=== PATIENT | female | born 1995 | race Caucasian/White ===

== ENCOUNTER 2018-08-25 19:15 | Emergency (ER) | payer BC ==
--- NOTE | 2018-08-25 19:37 | EDM.PDOC ---
ED HPI GENERAL MEDICAL PROBLEM - General Chief Complaint: Chest Pain Stated Complaint: PT HAS CHEST AND BACK PAINS Time Seen by Provider: 08/25/18 19:26 Source of Information: Reports: Patient History Limitations: Reports: No Limitations - History of Present Illness INITIAL COMMENTS - FREE TEXT/NARRATIVE: HISTORY AND PHYSICAL: History of present illness: Patient is a 23-year-old female who presents to the emergency room today with complaints of right-sided chest pain over the past 2-3 days. She states that over the past 24 hours the pain has been more constant and she feels a burning sensation to her epigastrium/chest. She states nothing has made this pain better or worse. She denies any fever, chills, illness of breath or cough. Denies any abdominal pain, nausea, vomiting, diarrhea, constipation or dysuria. Review of systems: As per history of present illness and below otherwise all systems reviewed and negative. Past medical history: As per history of present illness and as reviewed below otherwise noncontributory. Surgical history: As per history of present illness and as reviewed below otherwise noncontributory. Social history: No reported history of drug or alcohol abuse. Family history: As per history of present illness and as reviewed below otherwise noncontributory. Physical exam: General: Developed and well-nourished 23-year-old female. Alert and oriented. Nontoxic appearing and in no acute distress. HEENT: Atraumatic, normocephalic, pupils equal and reactive bilaterally, negative for conjunctival pallor or scleral icterus, mucous membranes moist, throat clear, neck supple, nontender, trachea midline. No drooling or trismus noted. No meningeal signs Lungs: Clear to auscultation, breath sounds equal bilaterally, chest nontender. Heart: S1S2, regular rate and rhythm without overt murmur Abdomen: Soft, nondistended, nontender. Negative for masses or hepatosplenomegaly. Negative for costovertebral tenderness. Pelvis: Stable nontender. Genitourinary: Deferred. Rectal: Deferred. Skin: Intact, warm, dry. No lesions or rashes noted. Extremities: Atraumatic, negative for cords or calf pain. Neurovascular unremarkable. Neuro: Awake, alert, oriented. Cranial nerves II through XII unremarkable. Cerebellum unremarkable. Motor and sensory unremarkable throughout. Exam nonfocal. Notes: EKG shows no evidence of acute findings. Patient has an H.pylori infection, will treat with triple therapy. Vital signs are stable. These findings with the patient and encouraged her to follow up with her primary care provider. She voices understanding and is agreeable to plan of care. Denies any further questions or concerns Diagnostics: CBC, CMP, amylase, lipase, H pylori, EKG, chest x-ray Therapeutics: GI cocktail Prescription: Omeprozole/Clarithrymycin/Amoxicillin x 14 days Impression: Nonspecific chest pain H.Pylori infection Plan: 1. Take your medications as directed. [place] diet, advance as tolerated. Tylenol as needed for pain management. 2. Please follow-up with your primary care provider in the next 1-2 days. Return to the ED as needed and as discussed. Definitive disposition and diagnosis as appropriate pending reevaluation and review of above. chest/back Pain Score (Numeric/FACES): 7 - Related Data Allergies Allergy/AdvReac Type Severity Reaction Status Date / Time No Known Allergies Allergy Verified 08/25/18 19:28 Home Meds: Home Meds Escitalopram Oxalate [Lexapro] 20 mg PO DAILY 08/25/18 [History] OXcarbazepine [Trileptal] 150 mg PO DAILY 08/25/18 [History] Past Medical History Psychiatric History: Reports: Bipolar - Past Surgical History GI Surgical History: Reports: Appendectomy Social & Family History - Tobacco Use Smoking Status *Q: Current Every Day Smoker Years of Tobacco use: 5 Packs/Tins Daily: 1 - Caffeine Use Caffeine Use: Reports: Coffee - Recreational Drug Use Recreational Drug Use: No ED ROS GENERAL - Review of Systems Review Of Systems: ROS reveals no pertinent complaints other than HPI. ED EXAM, GENERAL - Physical Exam Exam: See Below (See dictation) Course - Vital Signs Last Recorded V/S: Last Vital Signs Temp 97.3 F 08/25/18 19:25 Pulse 89 08/25/18 19:25 Resp 14 08/25/18 19:25 BP 144/83 H 08/25/18 19:25 Pulse Ox 96 08/25/18 19:25 - Orders/Labs/Meds Orders: Active Orders 24 hr Category Date Time Status EKG Documentation Completion [RC] STAT Care 08/25/18 19:30 Active Chest 2V [CR] Stat Exams 10/01/18 19:31 Taken Labs: Laboratory Tests 08/25/18 08/25/18 08/25/18 Range/Units 20:08 20:08 20:08 WBC 9.65 (4.0-11.0) K/uL RBC 4.82 (4.30-5.90) M/uL Hgb 15.1 (12.0-16.0) g/dL Hct 41.8 (36.0-46.0) % MCV 86.7 (80.0-98.0) fL MCH 31.3 (27.0-32.0) pg MCHC 36.1 (31.0-37.0) g/dL RDW Std Deviation 38.7 (28.0-62.0) fl RDW Coeff of Zarina 12 (11.0-15.0) % Plt Count 301 (150-400) K/uL MPV 9.80 (7.40-12.00) fL Neut % (Auto) 55.8 (48.0-80.0) % Lymph % (Auto) 34.3 (16.0-40.0) % [place] % (Auto) 7.4 (0.0-15.0) % Eos % (Auto) 2.3 (0.0-7.0) % Baso % (Auto) 0.2 (0.0-1.5) % Neut # (Auto) 5.4 (1.4-5.7) K/uL Lymph # (Auto) 3.3 H (0.6-2.4) K/uL [place] # (Auto) 0.7 (0.0-0.8) K/uL Eos # (Auto) 0.2 (0.0-0.7) K/uL Baso # (Auto) 0.0 (0.0-0.1) K/uL Nucleated RBC % 0.0 /100WBC Nucleated RBCs # 0 K/uL Sodium 137 (136-145) mmol/L Potassium 3.6 (3.5-5.1) mmol/L Chloride 105 (98-107) mmol/L Carbon Dioxide 23.1 (21.0-32.0) mmol/L BUN 10 (7.0-18.0) mg/dL Creatinine 0.7 (0.6-1.0) mg/dL Est Cr Clr Drug Dosing 119.01 mL/min Estimated GFR (MDRD) > 60.0 ml/min Glucose 112 H (74-106) mg/dL Calcium 9.3 (8.5-10.1) mg/dL Total Bilirubin 0.2 (0.2-1.0) mg/dL AST 12 L (15-37) IU/L ALT 19 (14-63) IU/L Alkaline Phosphatase 55 (46-116) U/L Total Protein 7.6 (6.4-8.2) g/dL Albumin 4.1 (3.4-5.0) g/dL Globulin 3.5 (2.0-3.5) g/dL Albumin/Globulin Ratio 1.2 L (1.3-2.8) Amylase 74 (25-115) U/L Lipase 216 (73-393) U/L H. pylori IgG Antibody POSITIVE H (NEG) Meds: Medications Discontinued Medications Generic Name Dose Route Start Last Admin Trade Name Freq PRN Reason Stop Dose Admin Al Hydroxide/Mg Hydroxide 15 0 ml 08/25/18 19:48 08/25/18 20:15 ml/ Metoclopramide HCl 5 mg/ PO 08/25/18 19:49 25 each Lidocaine HCl 5 ml ONETIME ONE Administration Departure - Departure Time of Disposition: 21:18 Disposition: Home, Self-Care 01 Clinical Impression: Helicobacter pylori (H. pylori) infection, Nonspecific chest pain Instructions: Helicobacter Pylori Infection Referrals: PCP,None [Primary Care Provider] - Forms: ED Department Discharge Additional Instructions: The following information is given to patients seen in the emergency department who are being discharged to home. This information is to outline your options for follow-up care. We provide all patients seen in our emergency department with a follow-up referral. The need for follow-up, as well as the timing and circumstances, are variable depending upon the specifics of your emergency department visit. If you don't have a primary care physician on staff, we will provide you with a referral. We always advise you to contact your personal physician following an emergency department visit to inform them of the circumstance of the visit and for follow-up with them and/or the need for any referrals to a consulting specialist. The emergency department will also refer you to a specialist when appropriate. This referral assures that you have the opportunity for follow-up care with a specialist. All of these measure are taken in an effort to provide you with optimal care, which includes your follow-up. Under all circumstances we always encourage you to contact your private physician who remains a resource for coordinating your care. When calling for follow-up care, please make the office aware that this follow-up is from your recent emergency room visit. If for any reason you are refused follow-up, please contact the [facility] Emergency Department at and asked to speak to the emergency department charge nurse. [facility] [address] [place] [id number] 1. Take your medications as directed. [place] diet, advance as tolerated. Tylenol as needed for pain management. 2. Please follow-up with your primary care provider in the next 1-2 days. Return to the ED as needed and as discussed. - My Orders Last 24 Hours: My Active Orders 08/25/18 19:30 EKG Documentation Completion [RC] STAT 08/25/18 19:31 Chest 2V [CR] Stat - Assessment/Plan Last 24 Hours: My Active Orders 08/25/18 19:30 EKG Documentation Completion [RC] STAT 08/25/18 19:31 Chest 2V [CR] Stat
[2018-08-25] MEDS ORDERED: Alum Hydrox/Mag Hydrox/Simeth 15 ML, Metoclopramide 5 MG, Lidocaine 2% 5 ML PO ONE ×3 (19:48)
[2018-08-25 20:37] LABS: CHLORIDE,CL 105 mmol/L (98-107); SODIUM,NA 137 mmol/L (136-145)
--- NOTE | 2018-08-26 09:30 | CR ---
EXAM DATE: 08/25/18 PATIENT'S AGE: 23 Patient: HADLEY ESQUIVEL Facility: [facility], [place] Site . Site : 1995 Study: XRay Chest [id number]/1/2018 8:06:48 PM Ordering Physician: Doctor Grace Final Report: INDICATION: Chest pain TECHNIQUE: Chest radiograph 2 views COMPARISON: None FINDINGS: Mediastinum: The mediastinum is normal in appearance. The heart silhouette is normal in size and morphology. Lung: Both lungs are unremarkable in appearance. No sign of pleural effusion seen. No pneumothorax is identified. Musculoskeletal: Unremarkable for age. IMPRESSION: 1. No acute cardiopulmonary disease is seen. Dictated by: Joshua Urban MD @ 08/25/2018 20:07:58 (Electronic Signature) Report Signed by Proxy. [facility]ITAL[facility]aitanya
== END 2018-08-25 21:32 | disposition home or self-care (01) ==
LOC: MW.ED 19:15
DX: R07.9 Chest pain, unspecified (principal); B96.81 Helicobacter pylori [H. pylori] as the cause of diseases classified elsewhere; F17.210 Nicotine dependence, cigarettes, uncomplicated; Z79.899 Other long term (current) drug therapy
CPT/HCPCS: 36415; 71046; 80053; 82150; 83690; 85025; 86677; 93005; 99285; A9270; 99283

== ENCOUNTER 2018-08-28 09:04 | Emergency (ER) | payer BC ==
[2018-08-28] MEDS ORDERED: diphenhydrAMINE 25 MG Cap PO ONE (09:38)
--- NOTE | 2018-08-28 09:42 | EDM.PDOC ---
ED HPI GENERAL MEDICAL PROBLEM - General Chief Complaint: Allergic Reaction Stated Complaint: poss allergic reaction Time Seen by Provider: 08/28/18 09:38 Source of Information: Reports: Patient History Limitations: Reports: No Limitations - History of Present Illness INITIAL COMMENTS - FREE TEXT/NARRATIVE: History of present illness: []Patient was seen ED and diagnosed with H. pylori infection on August 25 and started a Prevpac. Patient broke out in a rash all over last night that is itchy. Patient states that her dad is allergic to amoxicillin but she has not been in the past. Denies any shortness of breath, difficulty swallowing, change in her voice or cough. Review of systems: As per history of present illness and below otherwise all systems reviewed and negative. Past medical history: As per history of present illness and as reviewed below otherwise noncontributory. Surgical history: As per history of present illness and as reviewed below otherwise noncontributory. Social history: No reported history of drug or alcohol abuse. Family history: As per history of present illness and as reviewed below otherwise noncontributory. Physical exam: General: Well developed, well nourished in NAD HEENT: Atraumatic, normocephalic, pupils reactive, negative for conjunctival pallor or scleral icterus, mucous membranes moist, throat clear, neck supple, nontender, trachea midline. Lungs: Clear to auscultation, breath sounds equal bilaterally, chest nontender. Heart: S1S2, regular, negative for clicks, rubs, or JVD. Abdomen: Soft, nondistended, nontender. Negative for masses or hepatosplenomegaly. Negative for costovertebral tenderness. Pelvis: Stable nontender. Genitourinary: Deferred. Rectal: Deferred. Extremities: Atraumatic, negative for cords or calf pain. Neurovascular unremarkable. Neuro: Awake, alert, oriented. Cranial nerves II through XII unremarkable. Cerebellum unremarkable. Motor and sensory unremarkable throughout. Exam nonfocal. Skin:warm and dry, diffuse pinpoint erythematous rash no pustules, drainage or secondary infection is noted Diagnostics: None Therapeutics: Benadryl ED Course: Unremarkable Impression: Allergic reaction to an antibiotic Prescriptions: None Plan: Take Benadryl every 4 hours as needed for itching, stop clarithromycin, amoxicillin and omeprazole Definitive disposition and diagnosis as appropriate pending reevaluation and review of above. Generalized Pain Score (Numeric/FACES): 8 - Related Data Allergies Allergy/AdvReac Type Severity Reaction Status Date / Time No Known Allergies Allergy Verified 08/28/18 09:28 Home Meds: Home Meds Escitalopram Oxalate [Lexapro] 20 mg PO DAILY 08/25/18 [History] OXcarbazepine [Trileptal] 150 mg PO DAILY 08/25/18 [History] Methylphenidate [Metadate ER] 10 mg PO DAILY 08/28/18 [History] Past Medical History HEENT History: Reports: Allergic Rhinitis, Impaired Vision Other HEENT History: wears glasses Psychiatric History: Reports: ADHD, Bipolar, Depression - Infectious Disease History Infectious Disease History: Reports: Mononucleosis - Past Surgical History HEENT Surgical History: Reports: Tonsillectomy GI Surgical History: Reports: Appendectomy Social & Family History - Tobacco Use Smoking Status *Q: Current Every Day Smoker Years of Tobacco use: 5 Packs/Tins Daily: 1 - Caffeine Use Caffeine Use: Reports: Tea - Recreational Drug Use Recreational Drug Use: No ED ROS ALLERGIC REACTION - Review of Systems Review Of Systems: ROS reveals no pertinent complaints other than HPI. ED EXAM GENERAL NO PERIP PULSE - Physical Exam Exam: See Below (See history of present illness) Course - Vital Signs Last Recorded V/S: Last Vital Signs Temp 98.7 F 08/28/18 09:24 Pulse 96 08/28/18 09:24 Resp 16 08/28/18 09:24 BP 123/78 08/28/18 09:24 Pulse Ox 96 08/28/18 09:24 - Orders/Labs/Meds Meds: Medications Discontinued Medications Generic Name Dose Route Start Last Admin Trade Name Toya PRN Reason Stop Dose Admin Diphenhydramine HCl 25 mg 08/28/18 09:38 Benadryl PO 08/28/18 09:39 ONETIME ONE Departure - Departure Time of Disposition: 09:44 Disposition: Home, Self-Care 01 Condition: Good Clinical Impression: Allergic reaction caused by a drug Qualifiers: Encounter type: initial encounter Qualified Code(s): T78.40XA - Allergy, unspecified, initial encounter - Discharge Information *PRESCRIPTION DRUG MONITORING PROGRAM REVIEWED*: No *COPY OF PRESCRIPTION DRUG MONITORING REPORT IN PATIENT JEANETTE: No Referrals: Keiko Minor DO [Primary Care Provider] - Additional Instructions: The following information is given to patients seen in the emergency department who are being discharged to home. This information is to outline your options for follow-up care. We provide all patients seen in our emergency department with a follow-up referral. The need for follow-up, as well as the timing and circumstances, are variable depending upon the specifics of your emergency department visit. If you don't have a primary care physician on staff, we will provide you with a referral. We always advise you to contact your personal physician following an emergency department visit to inform them of the circumstance of the visit and for follow-up with them and/or the need for any referrals to a consulting specialist. The emergency department will also refer you to a specialist when appropriate. This referral assures that you have the opportunity for follow-up care with a specialist. All of these measure are taken in an effort to provide you with optimal care, which includes your follow-up. Under all circumstances we always encourage you to contact your private physician who remains a resource for coordinating your care. When calling for follow-up care, please make the office aware that this follow-up is from your recent emergency room visit. If for any reason you are refused follow-up, please contact the [facility] Emergency Department at and asked to speak to the emergency department charge nurse. Take Benadryl every 4 hours as needed for itching, stop Prevpac follow-up with primary care further treatment. [facility] [address] [place] [id number]
== END 2018-08-28 10:17 | disposition home or self-care (01) ==
LOC: MW.ED 09:04
DX: L27.0 Generalized skin eruption due to drugs and medicaments taken internally (principal); T36.0X5A Adverse effect of penicillins, initial encounter; F17.210 Nicotine dependence, cigarettes, uncomplicated; F31.9 Bipolar disorder, unspecified; F90.9 Attention-deficit hyperactivity disorder, unspecified type; Z79.899 Other long term (current) drug therapy
CPT/HCPCS: 99283; A9270

== ENCOUNTER 2022-11-24 17:56 | Emergency (ER) | payer BC | END 2022-11-24 20:29 | disposition home or self-care (01) | LOC: MW.ED 17:56 | DX: R60.0 Localized edema (principal); Z90.49 Acquired absence of other specified parts of digestive tract | CPT/HCPCS: 99283 ==

== ENCOUNTER 2023-11-17 07:47 | Emergency (ER) | payer BC, OTHER ==
[2023-11-17 08:38] LABS: BASOPHILS ABSOLUTE AUTO 0.06 K/uL (0.00-0.20); BASOPHILS PERCENT AUTO 0.4 % (0.0-1.0); EOSINOPHILS ABSOLUTE AUTO 0.26 K/uL (0.00-0.45); EOSINOPHILS PERCENT AUTO 1.9 % (0.0-6.0); HEMATOCRIT 39.7 % (37.0-47.0); HEMOGLOBIN 14.2 g/dL (12.0-16.0); IMMATURE GRAN ABSOLUTE AUTO 0.08 K/uL (0.00-0.05); IMMATURE GRAN PERCENT AUTO 0.6 % (0.0-0.4); LYMPHOCYTES ABSOLUTE AUTO 4.53 K/uL (1.00-4.80); MEAN CORPUSCULAR HEMOGLOBIN 29.5 pg (28.0-32.0); MEAN CORPUSCULAR HGB CONC 35.8 g/dL (32.0-36.0); MEAN CORPUSCULAR VOLUME 82.4 fL (83.0-99.0); MONOCYTES ABSOLUTE AUTO 0.65 K/uL (0.00-0.80); MONOCYTES PERCENT AUTO 4.7 % (0.0-8.0); NEUTROPHILS ABSOLUTE AUTO 8.13 K/uL (1.80-7.70); NEUTROPHILS PERCENT AUTO 59.4 % (41.0-71.0); PLATELET COUNT,PLT 457 K/uL (150-400); RED BLOOD CELL COUNT 4.82 M/uL (4.10-5.30); WHITE BLOOD CELL COUNT,WBC 13.71 K/uL (3.9-11.3)
[2023-11-17 08:52] LABS: INR 0.96 (0.86-1.11); PTT,PARTIAL THROMBOPLSTIN TIME 25.3 SEC (23.9-30.7)
[2023-11-17 09:00] LABS: A/G RATIO 0.8 (0.9-1.6); ALBUMIN 3.3 g/dL (3.4-5.0); BILIRUBIN TOTAL 0.4 mg/dL (0.2-1.0); CARBON DIOXIDE,CO2 22.6 mmol/L (21.0-32.0); CREATININE 0.8 mg/dL (0.6-1.0); EST CRCL DRUG DOSING (CG) 99.76 mL/min; POTASSIUM,K 3.7 mmol/L (3.5-5.1); PROTEIN TOTAL,TP 7.3 g/dL (6.4-8.2)
[2023-11-17 09:50] LABS: APPEARANCE,URINE CLOUDY; BILIRUBIN,URINE SMALL (NEGATIVE); COLOR,URINE YELLOW; GLUCOSE,URINE NEGATIVE (NEGATIVE); KETONES,URINE NEGATIVE (NEGATIVE); LEUKOCYTE ESTERASE,URINE NEGATIVE (NEGATIVE); NITRITE,URINE NEGATIVE (NEGATIVE); OCCULT BLOOD,URINE LARGE (NEGATIVE); PROTEIN,URINE 30 mg/dL (NEGATIVE); UROBILINOGEN,URINE 0.2 EU/dL (<2.0)
[2023-11-17 09:57] LABS: BACTERIA,URINE 1+ (NEGATIVE); EPITHELIAL CELLS,URINE MANY (NONE-FEW); MUCUS,URINE MODERATE (NONE-MOD)
== END 2023-11-17 12:40 | disposition home or self-care (01) ==
LOC: MW.ED 07:47
DX: O20.0 Threatened abortion (principal); Z3A.01 Less than 8 weeks gestation of pregnancy
CPT/HCPCS: 36415; 76801; 76801-26; 80053; 81001; 84702; 85025; 85610; 85730; 86850; 86900; 86901; 99284; J2790

== ENCOUNTER 2023-11-20 08:42 | Emergency (ER) | payer BC, OTHER ==
[2023-11-20 09:48] LABS: BASOPHILS ABSOLUTE AUTO 0.06 K/uL (0.00-0.20); BASOPHILS PERCENT AUTO 0.4 % (0.0-1.0); EOSINOPHILS ABSOLUTE AUTO 0.23 K/uL (0.00-0.45); EOSINOPHILS PERCENT AUTO 1.4 % (0.0-6.0); HEMATOCRIT 40.2 % (37.0-47.0); HEMOGLOBIN 14.3 g/dL (12.0-16.0); IMMATURE GRAN ABSOLUTE AUTO 0.12 K/uL (0.00-0.05); IMMATURE GRAN PERCENT AUTO 0.8 % (0.0-0.4); LYMPHOCYTES ABSOLUTE AUTO 3.91 K/uL (1.00-4.80); LYMPHOCYTES PERCENT AUTO 24.6 % (24.0-44.0); MEAN CORPUSCULAR HEMOGLOBIN 29.4 pg (28.0-32.0); MEAN CORPUSCULAR HGB CONC 35.6 g/dL (32.0-36.0); MEAN CORPUSCULAR VOLUME 82.7 fL (83.0-99.0); MEAN PLATELET VOLUME 8.9 fL (9.4-12.3); MONOCYTES ABSOLUTE AUTO 0.76 K/uL (0.00-0.80); MONOCYTES PERCENT AUTO 4.8 % (0.0-8.0); NEUTROPHILS ABSOLUTE AUTO 10.81 K/uL (1.80-7.70); PLATELET COUNT,PLT 434 K/uL (150-400); RED BLOOD CELL COUNT 4.86 M/uL (4.10-5.30); WHITE BLOOD CELL COUNT,WBC 15.89 K/uL (3.9-11.3)
== END 2023-11-20 15:42 | disposition home or self-care (01) ==
LOC: MW.ED 08:42
DX: O20.0 Threatened abortion (principal); Z3A.01 Less than 8 weeks gestation of pregnancy
CPT/HCPCS: 36415; 76817; 76817-26; 84702; 85025; 99284

== ENCOUNTER 2023-12-10 06:29 | Day surgery (SDC) | payer OTHER, BC ==
[2023-12-10] MEDS ORDERED: Lactated Ringers 1,000 ML IV SCH (06:45)
[2023-12-10] MEDS ORDERED: Ondansetron 4 MG/2 ML SDV IVPUSH PRN (06:51)
[2023-12-10] MEDS ORDERED: Albuterol 0.083% 2.5 MG/3 ML Neb Soln NEB PRN (06:51)
[2023-12-10] MEDS ORDERED: fentaNYL 50 MCG/ML SDV IVPUSH PRN (06:51)
[2023-12-10] MEDS ORDERED: Metoclopramide 10 MG/2 ML SDV IVPUSH PRN (06:51)
[2023-12-10] MEDS ORDERED: droPERidol 5 MG/2 ML SDV IVPUSH PRN (06:51)
[2023-12-10] MEDS ORDERED: Morphine 2 MG/ML SYRINGE IVPUSH PRN (06:51)
[2023-12-10] MEDS ORDERED: Naloxone 0.4 MG/ML SDV IVPUSH PRN (06:51)
[2023-12-10] MEDS ORDERED: HYDROmorphone 1 MG/ML Syringe IVPUSH PRN (06:51)
[2023-12-10 07:02] LABS: HEMATOCRIT 35.4 % (37.0-47.0); HEMOGLOBIN 12.4 g/dL (12.0-16.0); MEAN CORPUSCULAR VOLUME 85.5 fL (83.0-99.0); MEAN PLATELET VOLUME 8.7 fL (9.4-12.3); PLATELET COUNT,PLT 403 K/uL (150-400); RED BLOOD CELL COUNT 4.14 M/uL (4.10-5.30); WHITE BLOOD CELL COUNT,WBC 8.39 K/uL (3.9-11.3)
[2023-12-10] MEDS ORDERED: Propofol 200 MG/20 ML SDV ONE (07:24)
[2023-12-10] MEDS ORDERED: fentaNYL 250 MCG/5 ML SDV ONE (07:24)
[2023-12-10] MEDS ORDERED: propofoL 50 ML ONE (07:24)
[2023-12-10] MEDS ORDERED: Ketorolac 30 MG/ML SDV ONE (08:14)
[2023-12-10] MEDS ORDERED: Ondansetron 4 MG/2 ML SDV ONE (08:14)
[2023-12-10] MEDS ORDERED: Sugammadex Sodium 200 MG/2 ML VIAL ONE (08:14)
[2023-12-10] MEDS ORDERED: Dexamethasone 4 MG/ML 5 ML MDV ONE (08:14)
== END 2023-12-10 10:15 | disposition home or self-care (01) ==
LOC: MW.SDS 06:29
PROVIDERS: ATTEND Obstetrics & Gynecology
DX: O02.1 Missed abortion (principal); F90.9 Attention-deficit hyperactivity disorder, unspecified type; F32.A Depression, unspecified; N94.10 Unspecified dyspareunia; Z79.899 Other long term (current) drug therapy
CPT/HCPCS: 36415; 59820; 84703; 85027; J0131; J1100; J1885; J2405; J2704; J3010; J3490; J7120; 01965

== ENCOUNTER 2025-08-30 00:48 | Emergency (ER) | payer OTHER, BC ==
[2025-08-30] MEDS: Ondansetron 4 MG/2 ML SDV IVPUSH ONE (01:31)
[2025-08-30 01:38] LABS: MEAN PLATELET VOLUME 9.6 fL (9.4-12.3); NRBC ABSOLUTE 0.00 K/uL (0.00-0.02); NRBC PERCENT 0.0 /100WBC (0.0-0.2); PLATELET COUNT,PLT 429 K/uL (150-400); RED BLOOD CELL COUNT 5.28 M/uL (4.10-5.30); WHITE BLOOD CELL COUNT,WBC 11.35 K/uL (3.9-11.3)
[2025-08-30 01:39] LABS: INR 0.94 (0.86-1.11); PTT,PARTIAL THROMBOPLSTIN TIME 27.4 SEC (23.9-30.7)
[2025-08-30 01:44] LABS: A/G RATIO 1.1 (0.9-1.6); ALANINE AMINOTRANSFERASE,ALT 26 IU/L (14-63); ASPARTATE AMNIOTRANSFERASE,AST 21 IU/L (15-37); BILIRUBIN TOTAL 0.5 mg/dL (0.2-1.0); BLOOD UREA NITROGEN,BUN 10 mg/dL (7.0-18.0); CARBON DIOXIDE,CO2 25.0 mmol/L (21.0-32.0); CHLORIDE,CL 100 mmol/L (98-107); CREATININE 0.8 mg/dL (0.6-1.0); GLUCOSE RANDOM 93 mg/dL (74-106); POTASSIUM,K 3.8 mmol/L (3.5-5.1); PROTEIN TOTAL,TP 8.1 g/dL (6.4-8.2); SODIUM,NA 139 mmol/L (136-145)
[2025-08-30 01:45] LABS: ESTIMATED GFR 103 mL/min (>60); HCG QUANTITATIVE < 1.0 mIU/mL
[2025-08-30] MEDS: Iopamidol 755 MG/ML 500 ML Multipack Bottle IVPUSH ONE (01:53)
[2025-08-30 02:00] LABS: LYMPHOCYTES ABSOLUTE MAN 6.02 K/uL (1.00-4.80); LYMPHOCYTES PERCENT MAN 53 % (24-44); MONOCYTES ABSOLUTE MAN 0.57 K/uL (0.00-0.80); MONOCYTES PERCENT MAN 5 % (0-8); SEG NEUTROPHILS ABSOLUTE MAN 4.77 K/uL (1.80-7.70); SEG NEUTROPHILS PERCENT MAN 42 % (41-71)
== END 2025-08-30 03:54 | disposition home or self-care (01) ==
LOC: MW.ED 00:48
DX: K80.70 Calculus of gallbladder and bile duct without cholecystitis without obstruction (principal); F17.210 Nicotine dependence, cigarettes, uncomplicated; Z79.899 Other long term (current) drug therapy
CPT/HCPCS: 36415; 74177; 76705; 80053; 83690; 84484; 84702; 85025; 85610; 85730; 93005; 96374; 96375; 99284; J1171; J2405; J7030; Q9967; 93010; 99285

== ENCOUNTER 2025-09-15 09:14 | Day surgery (SDC) | payer OTHER, BC ==
[~2025-09-15 09:14] MED LIST: Albuterol 0.083% 2.5 MG/3 ML Neb Soln NEB PRN; Naloxone 0.4 MG/ML SDV IVPUSH PRN; Ondansetron 4 MG/2 ML SDV IVPUSH PRN; fentaNYL 50 MCG/ML SDV IVPUSH PRN
[2025-09-15] MEDS ORDERED: dexmedeTOMIDine HCl 200 MCG/2 ML SDV ONE ×2 (09:17)
[2025-09-15] MEDS ORDERED: Ropivacaine 0.5% 5 MG/ML 30 ML SDV ONE (09:17)
[2025-09-15] MEDS ORDERED: Morphine 10 MG/ML SDV ONE (09:17)
[2025-09-15] MEDS: Scopalamine 1mg/3day Transdermal Patch TOP ONE (09:27)
[2025-09-15] MEDS ORDERED: fentaNYL 100 MCG/2 ML SDV ONE (09:33)
[2025-09-15] MEDS ORDERED: Propofol 200 MG/20 ML SDV ONE (09:33)
[2025-09-15] MEDS ORDERED: Midazolam 1 MG/ML 2 ML SDV ONE (09:33)
[2025-09-15] MEDS ORDERED: ceFAZolin 2 GM in Water For Injection, Sterile 20 ML IVPUSH ONE (09:48)
[2025-09-15] MEDS: Lactated Ringers 1,000 ML IV SCH (09:53)
[2025-09-15] MEDS ORDERED: Indocyanine Green 25 MG SDV ONE (10:32)
[2025-09-15] MEDS ORDERED: Ondansetron 4 MG/2 ML SDV ONE (12:15)
[2025-09-15] MEDS ORDERED: Ketorolac 30 MG/ML SDV ONE (12:15)
== END 2025-09-15 14:45 | disposition home or self-care (01) ==
LOC: MW.SDS 09:14
PROVIDERS: ATTEND Surgery
DX: K80.10 Calculus of gallbladder with chronic cholecystitis without obstruction (principal); F17.210 Nicotine dependence, cigarettes, uncomplicated; E66.9 Obesity, unspecified; Z68.30 Body mass index [BMI] 30.0-30.9, adult; Z79.899 Other long term (current) drug therapy
CPT/HCPCS: 47562; 64488; 81025; A9270; J0665; J0690; J1171; J1885; J2003; J2250; J2272; J2405; J2704; J2795; J3010; J7120; 00790; J3490